=== PATIENT | female | born 1960 | race African-American/Black ===

== ENCOUNTER 2016-11-01 17:07 | Emergency (ER) | payer BC, MEDICAID ==
[~2016-11-01] VITALS: Ht 157.5 cm; Wt 78.0 kg
[2016-11-01 18:37] LABS: BASOPHILS % 0.8 % (0.0-2.0); DIFFERENTIAL COMMENT 0; EOSINOPHILS % 2.6 % (0.0-5.0); HEMATOCRIT. 41.3 % (36.0-48.0); HEMOGLOBIN. 13.6 g/dL (12.0-16.0); LYMPHOCYTES % 26.2 % (20.0-50.0); MEAN CORPUSCULAR HEMOGLOBIN 26.3 pg (28.0-32.0); MEAN CORPUSCULAR HGB CONC 32.9 g/dL (31.0-37.0); MEAN CORPUSCULAR VOLUME 79.9 fL (81.0-99.0); MEAN PLATELET VOLUME 6.7 fl (7.4-10.4); NEUTROPHILS % 64.4 % (40.0-76.0); PLATELET 387 x1000/uL (130-400); RED BLOOD CELL COUNT 5.17 mill/uL (4.2-5.4); RED CELL DISTRIBUTION WIDTH 14.4 % (11.6-14.6); WHITE BLOOD COUNT 11.7 x1000/uL (4.5-11.0)
[2016-11-01 18:47] LABS: PROTHROMBIN TIME 10.3 sec
[2016-11-01 18:57] LABS: ALANINE AMINOTRANSFERASE 24 IU/L (13-61); ALBUMIN 3.9 g/dL (3.4-5.0); ANION GAP 10; CALCIUM 10.3 mg/dL (8.5-10.1); CARBON DIOXIDE 29 mEq/L (21-32); CHLORIDE 103 mEq/L (98-107); ETHANOL BLOOD < 10 mg/dL; INDEX HEMOLYSI 1 (1-3); INDEX ICTERIC 1 (1-4); INDEX LIPEMIC 1 (1-3); NT PRO B-TYPE NATRIURETIC PEP 46 pg/mL (5-125); UREA NITROGEN BLOOD 9 mg/dL (7-21); eGFR > 60 mL/min (>60)
[2016-11-01 19:23] LABS: TROPONIN I < 0.02 ng/mL (0.00-0.04)
[2016-11-01 19:35] LABS: CLARITY URINE CLOUDY (CLEAR); COLOR URINE YELLOW (YELLOW); GLUCOSE URINE NEGATIVE (NEGATIVE); KETONES URINE NEGATIVE (NEGATIVE); LEUKOCYTE ESTERASE URINE NEGATIVE (NEGATIVE); NITRITE URINE NEGATIVE (NEGATIVE); OCCULT BLOOD URINE NEGATIVE (NEGATIVE); PH URINE 7.5 (4.5-8.0); PROTEIN URINE NEGATIVE (NEGATIVE); SPECIFIC GRAVITY URINE 1.015 (1.005-1.030); UROBILINOGEN URINE 0.2 E.U./dL (0.2-1.0)
[2016-11-01] MEDS ORDERED: ONDANSETRON HCL 4MG/2ML VIAL IV ONE (19:45)
[2016-11-01] MEDS ORDERED: MORPHINE SULFATE 4 MG/ML CPJ (NOT FOR IM USE) IV ONE (19:45)
[2016-11-01 20:29] LABS: *AMPHETAMINES SCREEN URINE NEGATIVE (NEGATIVE); *BARBITURATES SCREEN URINE NEGATIVE (NEGATIVE); *BENZODIAZEPINES SCREEN URINE PRESUMTIVE POSITIVE (NEGATIVE); *COCAINE SCREEN URINE NEGATIVE (NEGATIVE); CANNABINOID URINE SCREEN NEGATIVE (NEGATIVE); ECSTASY MDMA SCREEN URINE NEGATIVE (NEGATIVE); OPIATES URINE SCREEN NEGATIVE (NEGATIVE); PHENCYCLIDINE URINE SCREEN NEGATIVE (NEGATIVE)
[2016-11-01 20:36] LABS: METHADONE URINE SCREEN PRESUMTIVE POSITIVE (NEGATIVE)
[2016-11-01 20:40] LABS: HYALINE CASTS URINE 0-5 /lpf; SQUAMOUS EPITHELIAL CELL URINE 3+ /lpf (RARE/1+)
[2016-11-01 20:42] LABS: BACTERIA URINE 3+; RBC URINE NONE SEEN /hpf (0-2); WBC URINE 0-2 /hpf (0-2)
[2016-11-01 22:31] VITALS: BP 119/94
== END 2016-11-01 23:34 | disposition left against medical advice (07) ==
LOC: ER 17:07
DX: I10 Essential (primary) hypertension (principal); R40.0 Somnolence; D72.829 Elevated white blood cell count, unspecified; R73.9 Hyperglycemia, unspecified; Z90.49 Acquired absence of other specified parts of digestive tract
CPT/HCPCS: 36415; 70450; 71010; 80053; 80305; 81001; 83880; 84484; 85025; 85610; 93005; 96374; 96375; 99285; G0482; J2270; J2405; Z7610

== ENCOUNTER 2017-05-15 13:23 | Emergency (ER) | payer BC, MEDICAID ==
[~2017-05-15] VITALS: Ht 154.9 cm; Wt 73.0 kg
[2017-05-15 13:32] VITALS: BP 133/91
== END 2017-05-15 16:01 | disposition left against medical advice (07) ==
LOC: ER 14:34
DX: M54.5 Low back pain (principal); Z53.21 Procedure and treatment not carried out due to patient leaving prior to being seen by health care provider

== ENCOUNTER → 2017-08-24 | Outpatient (CLI) | payer BC, MEDICAID | END | disposition home or self-care (01) | LOC: CARD 10:23 | PROVIDERS: ATTEND Psychiatry & Neurology Neurology | DX: F28 Other psychotic disorder not due to a substance or known physiological condition (principal) ==

== ENCOUNTER 2017-08-26 11:11 | Inpatient (IN) | payer BC, MEDICAID ==
[~2017-08-26] VITALS: Ht 157.5 cm; Wt 78.0 kg
[2017-08-26 12:33] LABS: HEMATOCRIT. 41.7 % (36.0-48.0); HEMOGLOBIN. 13.9 g/dL (12.0-16.0); MEAN CORPUSCULAR HEMOGLOBIN 27.8 pg (28.0-32.0); MEAN CORPUSCULAR VOLUME 83.2 fL (81.0-99.0); MEAN PLATELET VOLUME 6.9 fl (7.4-10.4); PLATELET 413 x1000/uL (130-400); RED BLOOD CELL COUNT 5.02 mill/uL (4.2-5.4); RED CELL DISTRIBUTION WIDTH 14.7 % (11.6-14.6)
[2017-08-26 12:46] LABS: CHLORIDE 106 mEq/L (98-107)
[2017-08-26] MEDS ORDERED: SODIUM CHLORIDE 0.9% 1,000 ML IV ONE (12:56)
[2017-08-26 13:05] LABS: PLATELET ESTIMATE SLIGHTLY INCREASED
[2017-08-26] MEDS ORDERED: ACETAMINOPHEN 325MG TABLET PO ONE (15:00)
[2017-08-26 15:12] LABS: CLARITY URINE CLEAR (CLEAR); COLOR URINE YELLOW (YELLOW); KETONES URINE 3+ (NEGATIVE); LEUKOCYTE ESTERASE URINE NEGATIVE (NEGATIVE); NITRITE URINE NEGATIVE (NEGATIVE); OCCULT BLOOD URINE NEGATIVE (NEGATIVE); PROTEIN URINE 1+ (NEGATIVE); SPECIFIC GRAVITY URINE 1.023 (1.005-1.030); UROBILINOGEN URINE 0.2 E.U./dL (0.2-1.0)
[2017-08-26 15:33] LABS: *AMPHETAMINES SCREEN URINE NEGATIVE (NEGATIVE); *BARBITURATES SCREEN URINE NEGATIVE (NEGATIVE); *BENZODIAZEPINES SCREEN URINE PRESUMTIVE POSITIVE (NEGATIVE); *COCAINE SCREEN URINE NEGATIVE (NEGATIVE); CANNABINOID URINE SCREEN NEGATIVE (NEGATIVE); METHADONE URINE SCREEN NEGATIVE (NEGATIVE); OPIATES URINE SCREEN PRESUMTIVE POSITIVE (NEGATIVE); PHENCYCLIDINE URINE SCREEN NEGATIVE (NEGATIVE)
[2017-08-26] MEDS ORDERED: DOCUSATE SODIUM 100MG CAPSULE PO PRN (16:30)
[2017-08-26] MEDS ORDERED: DIPHENHYDRAMINE 50MG/ML VIAL IV PRN (16:30)
[2017-08-26] MEDS ORDERED: GUAIFENESIN 200MG/10ML SUGAR FREE UDC PO PRN (16:30)
[2017-08-26] MEDS ORDERED: IPRATROPIUM/ALBUTEROL 0.5-3(2.5)MG/3ML NEB INH PRN (16:30)
[2017-08-26] MEDS ORDERED: MAGNESIUM/ALUMINUM HYDROXIDE/SIMETHICONE 30ML UDC PO PRN (16:30)
[2017-08-26] MEDS ORDERED: NITROGLYCERIN 0.4MG TABLET SL SL PRN (16:30)
[2017-08-26] MEDS ORDERED: NA PHOS,M-B/NA PHOS,DI-BA ENEMA 118ML PR PRN (16:30)
[2017-08-26] MEDS ORDERED: ONDANSETRON HCL 4MG/2ML VIAL IV PRN (16:30)
[2017-08-26 17:17] LABS: HDL CHOLESTEROL 62 mg/dL (40-59); LDL CHOLESTEROL 124 mg/dL (5-100)
[2017-08-26 17:36] LABS: TROPONIN I < 0.10 ng/mL (0.00-0.04)
[2017-08-26] MEDS ORDERED: LEVOFLOXACIN 500MG PREMIX 100 ML IV NR (18:30)
[2017-08-26] MEDS: CLONIDINE 0.1MG TABLET PO PRN (19:06)
[2017-08-26] MEDS: MORPHINE SULFATE 4 MG/ML CPJ (NOT FOR IM USE) IV PRN (19:06)
[2017-08-26 23:18] LABS: CREATINE KINASE 39 IU/L (26-192); CREATINE KINASE MB FRACTION 0.7 ng/mL (0.5-3.6)
[2017-08-26 23:33] LABS: TROPONIN I < 0.10 ng/mL (0.00-0.04)
[2017-08-27] MEDS: MORPHINE SULFATE 4 MG/ML CPJ (NOT FOR IM USE) IV PRN ×2 (01:12→22:27)
[2017-08-27] MEDS: CLONIDINE 0.1MG TABLET PO PRN (01:12)
[2017-08-27] MEDS ORDERED: ATORVASTATIN CALCIUM 10MG TABLET PO SCH (03:00)
[2017-08-27] MEDS ORDERED: FAMOTIDINE 20MG/2ML VIAL IV NR (03:15)
[2017-08-27] MEDS ORDERED: METRONIDAZOLE 500 MG PREMIX 100 ML IV NR (03:15)
[2017-08-27] MEDS ORDERED: LISINOPRIL 20MG TABLET PO NR (03:15)
[2017-08-27 04:55] VITALS: BP 140/100
[2017-08-27 05:30] VITALS: BP 140/100
[2017-08-27 07:12] LABS: CREATINE KINASE 32 IU/L (26-192); CREATINE KINASE MB FRACTION 0.5 ng/mL (0.5-3.6)
[2017-08-27 07:53] VITALS: BP 133/75
[2017-08-27] MEDS: FAMOTIDINE 20MG/2ML VIAL IV SCH ×2 (08:38→20:32)
[2017-08-27] MEDS: LISINOPRIL 20MG TABLET PO SCH ×2 (08:38→21:30)
[2017-08-27] MEDS: ASPIRIN 325MG EC TABLET PO SCH (08:39)
[2017-08-27] MEDS: ENOXAPARIN 40MG/0.4ML SYR SUBCUT SCH (08:39)
[2017-08-27] MEDS ORDERED: AMLODIPINE 5MG TABLET PO NR (10:00)
[2017-08-27] MEDS: ACETAMINOPHEN 325MG TABLET PO PRN (10:30)
[2017-08-27 10:59] LABS: TROPONIN I < 0.02 ng/mL (0.00-0.04)
[2017-08-27] MEDS ORDERED: METRONIDAZOLE 500 MG PREMIX 100 ML IV SCH (11:00)
[2017-08-27 11:56] VITALS: BP 128/78
[2017-08-27] MEDS: TRAMADOL 50MG TABLET PO PRN (16:02)
[2017-08-27 16:16] VITALS: BP 145/82
[2017-08-27 16:28] LABS: BASOPHILS % 0.6 % (0.0-2.0); EOSINOPHILS % 0.1 % (0.0-5.0); HEMATOCRIT. 39.9 % (36.0-48.0); HEMOGLOBIN. 13.2 g/dL (12.0-16.0); LYMPHOCYTES % 17.7 % (20.0-50.0); MEAN CORPUSCULAR HEMOGLOBIN 27.9 pg (28.0-32.0); MEAN CORPUSCULAR VOLUME 84.2 fL (81.0-99.0); MEAN PLATELET VOLUME 7.4 fl (7.4-10.4); MONOCYTES % 5.9 % (2.0-8.0); NEUTROPHILS % 75.7 % (40.0-76.0); PLATELET 394 x1000/uL (130-400); RED BLOOD CELL COUNT 4.74 mill/uL (4.2-5.4); RED CELL DISTRIBUTION WIDTH 15.1 % (11.6-14.6)
[2017-08-27 16:53] LABS: CHLORIDE 108 mEq/L (98-107)
[2017-08-27] MEDS ORDERED: LEVOFLOXACIN 500MG PREMIX 100 ML IV SCH (18:00)
[2017-08-27 20:00] VITALS: BP 133/83
[2017-08-27] MEDS ORDERED: POTASSIUM CHLORIDE 20MEQ/PACKET PO NR (20:00)
[2017-08-27] MEDS: LEVOFLOXACIN 500MG PREMIX 100 ML IV SCH (20:33)
[2017-08-27] MEDS: ATORVASTATIN CALCIUM 10MG TABLET PO SCH (21:30)
[2017-08-27] MEDS: AMLODIPINE 5MG TABLET PO SCH (21:30)
[2017-08-27] MEDS: METRONIDAZOLE 500 MG PREMIX 100 ML IV SCH (22:18)
[2017-08-28] VITALS: BP 148/85
[2017-08-28] MEDS: ZOLPIDEM TARTRATE 5MG TABLET PO PRN ×2 (00:24→20:25)
[2017-08-28 04:00] VITALS: BP 135/89
[2017-08-28] MEDS: TRAMADOL 50MG TABLET PO PRN (04:39)
[2017-08-28] MEDS: METRONIDAZOLE 500 MG PREMIX 100 ML IV SCH ×3 (05:23→22:03)
[2017-08-28 06:45] LABS: BASOPHILS % 0.7 % (0.0-2.0); HEMATOCRIT. 41.4 % (36.0-48.0); HEMOGLOBIN. 13.7 g/dL (12.0-16.0); LYMPHOCYTES % 14.4 % (20.0-50.0); MEAN CORPUSCULAR HEMOGLOBIN 27.8 pg (28.0-32.0); MEAN CORPUSCULAR VOLUME 83.9 fL (81.0-99.0); MEAN PLATELET VOLUME 7.2 fl (7.4-10.4); NEUTROPHILS % 78.9 % (40.0-76.0); PLATELET 399 x1000/uL (130-400); RED BLOOD CELL COUNT 4.93 mill/uL (4.2-5.4); RED CELL DISTRIBUTION WIDTH 14.8 % (11.6-14.6)
[2017-08-28 07:31] LABS: CHLORIDE 109 mEq/L (98-107)
[2017-08-28 08:00] VITALS: BP 149/95
[2017-08-28 08:00] LABS: TROPONIN I <0.01 ng/mL ng/mL (0.00-0.04)
[2017-08-28] MEDS: LISINOPRIL 20MG TABLET PO SCH ×2 (08:38→20:24)
[2017-08-28] MEDS: FAMOTIDINE 20MG/2ML VIAL IV SCH ×2 (08:38→20:23)
[2017-08-28] MEDS: AMLODIPINE 5MG TABLET PO SCH ×2 (08:38→20:24)
[2017-08-28] MEDS: ASPIRIN 325MG EC TABLET PO SCH (08:38)
[2017-08-28] MEDS: ENOXAPARIN 40MG/0.4ML SYR SUBCUT SCH (08:39)
[2017-08-28] MEDS ORDERED: POTASSIUM CHLORIDE 20MEQ TABLET SR PO SCH (09:30)
[2017-08-28] MEDS: ACETAMINOPHEN 325MG TABLET PO PRN (10:11)
[2017-08-28 12:00] VITALS: BP 151/95
[2017-08-28 16:00] VITALS: BP 137/70
[2017-08-28 20:00] VITALS: BP 143/91
[2017-08-28] MEDS: LEVOFLOXACIN 500MG PREMIX 100 ML IV SCH (20:23)
[2017-08-28] MEDS: ATORVASTATIN CALCIUM 10MG TABLET PO SCH (20:23)
[2017-08-28] MEDS: MORPHINE SULFATE 4 MG/ML CPJ (NOT FOR IM USE) IV PRN (20:41)
[2017-08-29] VITALS: BP 116/64
[2017-08-29 04:00] VITALS: BP 125/69
[2017-08-29] MEDS: METRONIDAZOLE 500 MG PREMIX 100 ML IV SCH (05:24)
[2017-08-29 07:58] VITALS: BP 155/86
== END 2017-08-29 08:35 | disposition left against medical advice (07) | DRG 392 ==
LOC: ER 11:11 → 8WST 16:09 → SUPCPDRO 18:29 → ENRESERV 08-27 03:34
PROVIDERS: ADMIT Internal Medicine; ATTEND Internal Medicine
PROC: 4A00X4Z Measurement of Central Nervous Electrical Activity, External Approach (ICD-10-PCS; principal; 2017-08-26)
DX: K52.9 Noninfective gastroenteritis and colitis, unspecified (principal); I11.9 Hypertensive heart disease without heart failure; E78.5 Hyperlipidemia, unspecified; R53.1 Weakness; Z53.21 Procedure and treatment not carried out due to patient leaving prior to being seen by health care provider; R42 Dizziness and giddiness; R10.9 Unspecified abdominal pain; R19.7 Diarrhea, unspecified; Z79.82 Long term (current) use of aspirin; Z79.899 Other long term (current) drug therapy; Z86.73 Personal history of transient ischemic attack (TIA), and cerebral infarction without residual deficits; Z90.49 Acquired absence of other specified parts of digestive tract
CPT/HCPCS: 36415; 70450; 70551; 71045; 80048; 80053; 80061; 80305; 81003; 82550; 82553; 82962; 83036; 83605; 84484; 85025; 87015; 87040; 87045; 87086; 87427; 87449; 89055; 93005; 93306; 93970; 96365; 96372; 96375; 99285; C1893; J1650; J1956; J2270; J2405; J3490; J7030

== ENCOUNTER 2017-11-23 13:15 | Emergency (ER) | payer BC, MEDICAID ==
[~2017-11-23] VITALS: Ht 165.1 cm; Wt 84.0 kg
[2017-11-23] MEDS ORDERED: SODIUM CHLORIDE 0.9% 500 ML IV ONE (15:36)
[2017-11-23 16:20] LABS: BASOPHILS % 0.7 % (0.0-2.0); EOSINOPHILS % 2.5 % (0.0-5.0); HEMATOCRIT. 40.9 % (36.0-48.0); HEMOGLOBIN. 13.6 g/dL (12.0-16.0); LYMPHOCYTES % 27.5 % (20.0-50.0); MEAN CORPUSCULAR HEMOGLOBIN 28.7 pg (28.0-32.0); MEAN PLATELET VOLUME 6.9 fl (7.4-10.4); MONOCYTES % 4.4 % (2.0-8.0); NEUTROPHILS % 64.9 % (40.0-76.0); PLATELET 301 x1000/uL (130-400); RED BLOOD CELL COUNT 4.76 mill/uL (4.2-5.4); RED CELL DISTRIBUTION WIDTH 13.8 % (11.6-14.6)
[2017-11-23 16:23] LABS: CHLORIDE 103 mEq/L (98-107)
[2017-11-23 16:24] LABS: PROTHROMBIN TIME 10.2 sec (9.4-11.6)
[2017-11-23 16:34] LABS: CREATINE KINASE MB FRACTION 2.8 ng/mL (0.5-3.6)
[2017-11-23 17:33] LABS: CLARITY URINE CLEAR (CLEAR); COLOR URINE YELLOW (YELLOW); KETONES URINE NEGATIVE (NEGATIVE); LEUKOCYTE ESTERASE URINE NEGATIVE (NEGATIVE); NITRITE URINE NEGATIVE (NEGATIVE); OCCULT BLOOD URINE NEGATIVE (NEGATIVE); PROTEIN URINE NEGATIVE (NEGATIVE); SPECIFIC GRAVITY URINE 1.008 (1.005-1.030); UROBILINOGEN URINE 0.2 E.U./dL (0.2-1.0)
[2017-11-23 18:06] VITALS: BP 150/96
[2017-11-23] MEDS ORDERED: KETOROLAC 15MG/ML VIAL IV ONE (18:15)
== END 2017-11-23 18:24 | disposition home or self-care (01) ==
LOC: ER 14:07
DX: R55 Syncope and collapse (principal); E88.09 Other disorders of plasma-protein metabolism, not elsewhere classified; J45.909 Unspecified asthma, uncomplicated; I10 Essential (primary) hypertension; G89.29 Other chronic pain; R40.4 Transient alteration of awareness; I51.7 Cardiomegaly; I69.351 Hemiplegia and hemiparesis following cerebral infarction affecting right dominant side
CPT/HCPCS: 36415; 70450; 71045; 80053; 81003; 82553; 82962; 83735; 83880; 84484; 85025; 85610; 93005; 96360; 99285; J1885; J7040

== ENCOUNTER 2021-04-24 17:16 | Emergency (ER) | payer BC ==
[~2021-04-24] VITALS: Ht 167.6 cm; Wt 74.0 kg
[2021-04-24] MEDS ORDERED: ACETAMINOPHEN 325MG TABLET PO ONE (18:45)
[2021-04-24 19:47] LABS: BG BASE EXCESS -1.3 mmol/L (-2.0-2.0); BG CARBOXYHEMOGLOBIN 0.9 % (0.5-1.5); BG DEOXYHEMOGLOBIN 6.5 % (0.0-5.0); BG FRACTION INSPIRED OXYGEN 21; BG HCO3 ACT 24.1 mmol/L (22.0-26.0); BG METHEMOGLOBIN 0.3 % (0.0-1.5); BG OXYGEN SATURATION 93.4 % (92.0-98.5); BG OXYHEMOGLOBIN 92.3 % (94.0-97.0); BG PCO2 42.9 mmHg (35.0-45.0); BG PH 7.367 (7.350-7.450); BG SAMPLE SITE RIGHT RADIAL; BG TOTAL HEMOGLOBIN 13.2 g/dL (12.0-18.0); BG VENT MODE ROOM AIR
[2021-04-24 20:08] LABS: BASOPHILS % 0.3 % (0.0-2.0); EOSINOPHILS % 2.5 % (0.0-5.0); HEMATOCRIT. 38.9 % (36.0-48.0); HEMOGLOBIN. 12.4 g/dL (12.0-16.0); LYMPHOCYTES % 18.3 % (20.0-50.0); MEAN CORPUSCULAR HEMOGLOBIN 25.8 pg (28.0-32.0); MEAN CORPUSCULAR VOLUME 80.8 fL (81.0-99.0); MEAN PLATELET VOLUME 7.2 fl (7.4-10.4); MONOCYTES % 4.7 % (2.0-8.0); NEUTROPHILS % 74.2 % (40.0-76.0); PLATELET 380 x1000/uL (130-400); RED BLOOD CELL COUNT 4.81 mill/uL (4.2-5.4); RED CELL DISTRIBUTION WIDTH 14.6 % (11.6-14.6)
[2021-04-24 20:16] LABS: CHLORIDE 106 mEq/L (98-107)
[2021-04-24 20:22] LABS: ETHANOL BLOOD < 10 mg/dL
[2021-04-24 20:26] LABS: CREATINE KINASE 110 IU/L (26-192)
[2021-04-24 20:35] LABS: CLARITY URINE CLEAR (CLEAR); COLOR URINE YELLOW (YELLOW); KETONES URINE NEGATIVE (NEGATIVE); LEUKOCYTE ESTERASE URINE NEGATIVE (NEGATIVE); NITRITE URINE NEGATIVE (NEGATIVE); OCCULT BLOOD URINE NEGATIVE (NEGATIVE); PROTEIN URINE NEGATIVE (NEGATIVE); SPECIFIC GRAVITY URINE 1.016 (1.005-1.030); UROBILINOGEN URINE 0.2 E.U./dL (0.2-1.0)
[2021-04-24 20:40] VITALS: BP 186/110
[2021-04-24 20:45] LABS: *AMPHETAMINES SCREEN URINE NEGATIVE (NEGATIVE); *BARBITURATES SCREEN URINE NEGATIVE (NEGATIVE); *BENZODIAZEPINES SCREEN URINE PRESUMTIVE POSITIVE (NEGATIVE); *COCAINE SCREEN URINE NEGATIVE (NEGATIVE); METHADONE URINE SCREEN NEGATIVE (NEGATIVE); OPIATES URINE SCREEN PRESUMTIVE POSITIVE (NEGATIVE)
[2021-04-24] MEDS ORDERED: OXYCODONE HCL/ACETAMINOPHEN 5/325MG TABLET PO ONE (20:45)
[2021-04-24 20:46] LABS: CANNABINOID URINE SCREEN NEGATIVE (NEGATIVE); PHENCYCLIDINE URINE SCREEN NEGATIVE (NEGATIVE)
== END 2021-04-24 22:03 | disposition left against medical advice (07) ==
LOC: ER 17:16
DX: R53.1 Weakness (principal); D72.829 Elevated white blood cell count, unspecified; R29.6 Repeated falls; R50.9 Fever, unspecified; M25.551 Pain in right hip; M25.552 Pain in left hip; Z91.81 History of falling; Z86.73 Personal history of transient ischemic attack (TIA), and cerebral infarction without residual deficits; I11.9 Hypertensive heart disease without heart failure; J45.909 Unspecified asthma, uncomplicated
CPT/HCPCS: 36415; 36600; 71045; 73521; 80053; 80305; 80320; 81003; 82140; 82375; 82550; 82805; 83605; 83880; 84484; 85025; 85379; 93005; 99285; G0480

== ENCOUNTER 2021-07-16 08:07 | Emergency (ER) | payer BC, MEDICAID ==
[~2021-07-16] VITALS: Ht 165.1 cm; Wt 80.0 kg
[2021-07-16] MEDS ORDERED: MORPHINE SULFATE 4 MG/ML CPJ (NOT FOR IM USE) IV STA (08:19)
[2021-07-16] MEDS ORDERED: SODIUM CHLORIDE 0.9% 1,000 ML IV ONE (08:30)
[2021-07-16 08:41] LABS: BASOPHILS % 0.8 % (0.0-2.0); HEMATOCRIT. 41.5 % (36.0-48.0); HEMOGLOBIN. 13.8 g/dL (12.0-16.0); LYMPHOCYTES % 20.4 % (20.0-50.0); MEAN CORPUSCULAR HEMOGLOBIN 26.8 pg (28.0-32.0); MEAN CORPUSCULAR VOLUME 80.5 fL (81.0-99.0); MEAN PLATELET VOLUME 7.1 fl (7.4-10.4); MONOCYTES % 5.3 % (2.0-8.0); NEUTROPHILS % 72.5 % (40.0-76.0); PLATELET 435 x1000/uL (130-400); RED BLOOD CELL COUNT 5.15 mill/uL (4.2-5.4); RED CELL DISTRIBUTION WIDTH 14.4 % (11.6-14.6)
[2021-07-16 08:49] LABS: CHLORIDE 111 mEq/L (98-107)
[2021-07-16 08:58] LABS: CLARITY URINE CLEAR (CLEAR); COLOR URINE YELLOW (YELLOW); KETONES URINE NEGATIVE (NEGATIVE); LEUKOCYTE ESTERASE URINE NEGATIVE (NEGATIVE); NITRITE URINE NEGATIVE (NEGATIVE); OCCULT BLOOD URINE NEGATIVE (NEGATIVE); PH URINE 8.5 (4.5-8.0); PROTEIN URINE NEGATIVE (NEGATIVE); SPECIFIC GRAVITY URINE 1.019 (1.005-1.030); UROBILINOGEN URINE 0.2 E.U./dL (0.2-1.0)
[2021-07-16] MEDS ORDERED: OXYCODONE HCL/ACETAMINOPHEN 5/325MG TABLET PO ONE ×2 (09:45→12:00)
[2021-07-16 09:49] VITALS: BP 183/100
== END 2021-07-16 13:33 | disposition home or self-care (01) ==
LOC: ER 08:07
DX: R10.84 Generalized abdominal pain (principal); N81.4 Uterovaginal prolapse, unspecified; R19.7 Diarrhea, unspecified
CPT/HCPCS: 36415; 71045; 74176; 80053; 81003; 83605; 83690; 84484; 85025; 93005; 96360; 99285; J7030

== ENCOUNTER 2022-02-26 07:23 | Emergency (ER) | payer BC, MEDICAID ==
[~2022-02-26] VITALS: Ht 162.6 cm; Wt 90.0 kg
[2022-02-26 07:45] VITALS: BP 142/90
[2022-02-26] MEDS ORDERED: KETOROLAC 60MG/2ML VIAL IM ONE (07:45)
[2022-02-26] MEDS ORDERED: T3 PO ×5 (09:17→10:14)
[2022-02-26] MEDS ORDERED: IBUP-2028 PO ×5 (09:17→10:14)
== END 2022-02-26 10:05 | disposition home or self-care (01) ==
LOC: ER 07:23
DX: S93.491A Sprain of other ligament of right ankle, initial encounter (principal); M25.551 Pain in right hip; I10 Essential (primary) hypertension; X58.XXXA Exposure to other specified factors, initial encounter; Y93.89 Activity, other specified; Y92.89 Other specified places as the place of occurrence of the external cause
CPT/HCPCS: 73590; 73610; 96372; 99284; J1885

== ENCOUNTER 2022-07-23 10:39 | Emergency (ER) | payer MEDICAID ==
[~2022-07-23] VITALS: Ht 157.5 cm; Wt 100.0 kg
[~2022-07-23 10:39] MED LIST: IBUP-2028 PO; T3 PO
[2022-07-23] MEDS ORDERED: KETOROLAC 30MG/ML VIAL IM STA (13:41)
[2022-07-23] MEDS ORDERED: HYDROCODONE/ACETAMINOPHEN 5/325MG TABLET PO STA (15:03)
[2022-07-23] MEDS ORDERED: NAPR-681 PO (15:18)
[2022-07-23] MEDS ORDERED: HYDR-4001 PO (15:18)
[2022-07-23 15:49] VITALS: BP 132/68
== END 2022-07-23 16:03 | disposition home or self-care (01) ==
LOC: ER 10:54
DX: S42.292A Other displaced fracture of upper end of left humerus, initial encounter for closed fracture (principal); W01.0XXA Fall on same level from slipping, tripping and stumbling without subsequent striking against object, initial encounter; Y93.89 Activity, other specified; Y92.010 Kitchen of single-family (private) house as the place of occurrence of the external cause
CPT/HCPCS: 73030; 73060; 96372; 99284; J1885; A4565

== ENCOUNTER 2022-07-27 02:42 | Emergency (ER) | payer MEDICAID ==
[~2022-07-27] VITALS: Ht 154.9 cm; Wt 88.0 kg
[~2022-07-27 02:42] MED LIST changes: +HYDR-4001 PO; +NAPR-681 PO
[2022-07-27] MEDS ORDERED: KETOROLAC 60MG/2ML VIAL IM ONE (03:15)
[2022-07-27 03:30] VITALS: BP 142/78
[2022-07-27] MEDS ORDERED: HYDR-4001 MT (03:30)
[2022-07-27] MEDS ORDERED: HYDROCODONE/ACETAMINOPHEN 5/325MG TABLET PO ONE (03:30)
== END 2022-07-27 04:30 | disposition home or self-care (01) ==
LOC: ER 02:42
DX: S42.292A Other displaced fracture of upper end of left humerus, initial encounter for closed fracture (principal); X58.XXXA Exposure to other specified factors, initial encounter; Y93.89 Activity, other specified; Y92.89 Other specified places as the place of occurrence of the external cause
CPT/HCPCS: 96372; 99283; J1885